=== PATIENT | female | born 1955 | race Caucasian/White ===

== ENCOUNTER 2023-11-16 10:44 | Emergency (ER) | payer MEDICARE ==
[~2023-11-16] VITALS: Ht 160 cm; Wt 86.3 kg
[2023-11-16] MEDS ORDERED: RISP1TAB42 PO (10:56)
[2023-11-16] MEDS ORDERED: PRAZ1CAP PO (10:56)
[2023-11-16] MEDS ORDERED: ROSU10TA61 PO (10:56)
[2023-11-16] MEDS ORDERED: ROPI0.5T33 PO (10:56)
[2023-11-16] MEDS ORDERED: PANT20TA6 PO (10:56)
[2023-11-16] MEDS ORDERED: TRAZ-257 PO (10:56)
[2023-11-16] MEDS ORDERED: LISI10TA22 PO (10:56)
[2023-11-16] MEDS ORDERED: VITAD400CA PO (10:56)
[2023-11-16] MEDS ORDERED: CALC500T68 PO (10:56)
[2023-11-16] MEDS ORDERED: PROZ40CA PO (10:56)
[2023-11-16] MEDS ORDERED: ASPI-655 PO (10:56)
[2023-11-16] MEDS ORDERED: KLON1TAB13 PO (10:57)
[2023-11-16] MEDS: NS 1,000 ML IV ONE (12:07)
[2023-11-16] MEDS: ONDANSETRON 4MG 2ML VIAL IV ONE (12:08)
[2023-11-16] MEDS: MORPHINE 4 MG/ML 1ML VIAL IV ONE ×2 (12:08→13:24)
[2023-11-16 12:09] LABS: BASO # 0.1 10^3/uL (0.0-0.2); BASO % 0.9 % (0.0-1.0); EOS # 0.1 10^3/uL (0.0-0.5); EOS % 0.6 % (0.0-3.0); HEMATOCRIT 44.8 % (36.0-47.0); HEMOGLOBIN 14.6 g/dl (12.0-15.5); LYMPH # 1.8 10^3/uL (1.5-5.0); LYMPH % 21.9 % (24.0-44.0); MEAN CORPUSCULAR HEMOGLOBIN 27.9 pg (27.0-33.0); MEAN CORPUSCULAR HGB CONC 32.6 g/dl (32.0-36.5); MEAN CORPUSCULAR VOLUME 85.5 fl (80.0-96.0); MONO # 0.7 10^3/uL (0.0-0.8); MONO % 8.1 % (2.0-8.0); NEUTROPHILS # 5.4 10^3/uL (1.5-8.5); NEUTROPHILS % 68.2 % (36.0-66.0); PLATELET COUNT, AUTOMATED 259 10^3/uL (150-450); RED BLOOD COUNT 5.24 10^6/uL (4.00-5.40)
[2023-11-16 12:27] LABS: LIPASE 40 U/L (12-53)
[2023-11-16 12:29] LABS: ALBUMIN 4.1 G/DL (3.2-5.2); ALKALINE PHOSPHATASE 145 U/L (46-116); ALT/SGPT 17 U/L (7.0-40); AST/SGOT 17 U/L (<34); BILIRUBIN,TOTAL 0.4 MG/DL (0.3-1.2); BLOOD UREA NITROGEN 13 MG/DL (9-23); CALCIUM LEVEL 9.7 MG/DL (8.3-10.6); CARBON DIOXIDE LEVEL 28 MMOL/L (20-31); CHLORIDE LEVEL 108 MMOL/L (98-107); GLOMERULAR FILTRATION RATE > 60.0 (>45); GLUCOSE, FASTING 87 MG/DL (74-106); POTASSIUM SERUM 4.1 MMOL/L (3.5-5.1); SODIUM LEVEL 141 MMOL/L (136-145); TOTAL PROTEIN 7.3 G/DL (5.7-8.2)
[2023-11-16] MEDS: GASTROGRAFIN SOLUTION 30ML PO SCH (12:53)
[2023-11-16] MEDS ORDERED: ISOVUE-370 76% 100ML VIAL As Ordered ONE (13:50)
[2023-11-16] MEDS ORDERED: HYDR-3713 PO (15:33)
[2023-11-16] MEDS ORDERED: COLA100C5 PO (15:33)
[2023-11-16 15:50] VITALS: BP 135/71; TEMP 97.8; O2SAT 96
== END 2023-11-16 16:02 | disposition home or self-care (01) ==
LOC: M ED 10:44
DX: K43.5 Parastomal hernia without obstruction or gangrene (principal); I10 Essential (primary) hypertension; E78.5 Hyperlipidemia, unspecified; F31.9 Bipolar disorder, unspecified; K57.90 Diverticulosis of intestine, part unspecified, without perforation or abscess without bleeding; F17.200 Nicotine dependence, unspecified, uncomplicated; Z79.82 Long term (current) use of aspirin; Z79.811 Long term (current) use of aromatase inhibitors; Z79.899 Other long term (current) drug therapy
CPT/HCPCS: 74177; 80053; 83605; 83690; 85025; 87324; 87507; 96361; 96374; 96375; 99284; J2405; Q9963; Q9967

== ENCOUNTER 2024-03-29 08:20 | Inpatient (IN) | payer MEDICARE, OTHER ==
[~2024-03-29] VITALS: Ht 162.6 cm; Wt 84.9 kg
[~2024-03-29 08:20] MED LIST: ASPI-655 PO; CALC500T68 PO; COLA100C5 PO; HYDR-3713 PO; KLON1TAB13 PO; LISI10TA22 PO; PANT20TA6 PO; PRAZ1CAP PO; PROZ40CA PO; RISP1TAB42 PO; ROPI0.5T33 PO; ROSU10TA61 PO; TRAZ-257 PO; VITAD400CA PO
[2024-03-29] MEDS ORDERED: NYST10006 (08:55)
[2024-03-29] MEDS ORDERED: GABA-284 PO (08:55)
[2024-03-29] MEDS: PANTOPRAZOLE 40MG VIAL IV ONE ×2 (09:06→13:58)
[2024-03-29] MEDS: MORPHINE 2 MG/ML 1ML VIAL IV PRN ×2 (09:07→18:24)
[2024-03-29 09:12] LABS: BASO % 0.5 % (0.0-1.0); EOS % 0.4 % (0.0-3.0); HEMOGLOBIN 9.8 g/dl (12.0-15.5); LYMPH % 13.1 % (24.0-44.0); MEAN CORPUSCULAR HEMOGLOBIN 27.8 pg (27.0-33.0); MEAN CORPUSCULAR HGB CONC 31.6 g/dl (32.0-36.5); MEAN CORPUSCULAR VOLUME 87.8 fl (80.0-96.0); MONO # 0.6 10^3/uL (0.0-0.8); MONO % 7.7 % (2.0-8.0); NEUTROPHILS # 5.9 10^3/uL (1.5-8.5); NEUTROPHILS % 77.8 % (36.0-66.0); PLATELET COUNT, AUTOMATED 250 10^3/uL (150-450); RED BLOOD COUNT 3.53 10^6/uL (4.00-5.40); WHITE BLOOD COUNT 7.6 10^3/uL (4.0-10.0)
[2024-03-29 09:18] LABS: INR 1.07; PARTIAL THROMBOPLASTIN TIME 24.6 SECONDS (24.8-34.2); PROTHROMBIN TIME 13.6 SECONDS (12.5-14.5)
[2024-03-29] MEDS: NS 1,000 ML IV ONE (09:22)
[2024-03-29 09:28] LABS: LIPASE 27 U/L (12-53)
[2024-03-29 09:31] LABS: ALBUMIN 2.8 G/DL (3.2-5.2); ALKALINE PHOSPHATASE 106 U/L (46-116); ALT/SGPT 11 U/L (7.0-40); AST/SGOT 18 U/L (<34); BILIRUBIN,DIRECT < 0.1 MG/DL (<0.4); BILIRUBIN,TOTAL < 0.2 MG/DL (0.3-1.2); BLOOD UREA NITROGEN 46 MG/DL (9-23); CARBON DIOXIDE LEVEL 23 MMOL/L (20-31); CHLORIDE LEVEL 112 MMOL/L (98-107); CREATININE FOR GFR 0.75 MG/DL (0.55-1.30); GLOMERULAR FILTRATION RATE > 60.0 (>45); GLUCOSE, FASTING 97 MG/DL (74-106); POTASSIUM SERUM 5.2 MMOL/L (3.5-5.1); SODIUM LEVEL 141 MMOL/L (136-145); TOTAL PROTEIN 5.7 G/DL (5.7-8.2)
[2024-03-29] MEDS ORDERED: ISOVUE-370 76% 100ML VIAL As Ordered ONE (10:14)
[2024-03-29] MEDS: LIDOCAINE 2% 5ML JELLY UROJET TOP ONE (10:45)
[2024-03-29 11:01] LABS: HEMATOCRIT 27.3 % (36.0-47.0); HEMOGLOBIN 8.6 g/dl (12.0-15.5); MEAN CORPUSCULAR HEMOGLOBIN 27.9 pg (27.0-33.0); MEAN CORPUSCULAR HGB CONC 31.5 g/dl (32.0-36.5); MEAN CORPUSCULAR VOLUME 88.6 fl (80.0-96.0); PLATELET COUNT, AUTOMATED 228 10^3/uL (150-450); RED BLOOD COUNT 3.08 10^6/uL (4.00-5.40)
[2024-03-29] MEDS: NS 500 ML IV ONE (11:06)
[2024-03-29] MEDS: CIPROFLOXACIN 400 MG in IV 1 EA IV ONE (11:55)
[2024-03-29] MEDS ORDERED: ATOR40TA75 PO (12:38)
[2024-03-29] MEDS ORDERED: FLUO-365 PO (12:38)
[2024-03-29] MEDS ORDERED: ROPI1TA PO (12:38)
[2024-03-29] MEDS ORDERED: RISP0.5T21 PO (12:38)
[2024-03-29] MEDS ORDERED: HOME MED LIST COMPLETE! XX SCH (12:40)
[2024-03-29] MEDS: metroNIDAZOLE 500 MG in IV 1 EA IV ONE (12:59)
[2024-03-29] MEDS: PANTOPRAZOLE SODIUM 40 MG in D5W 50 ML IV SCH (13:37)
[2024-03-29 14:09] VITALS: BP 113/62; TEMP 98; O2SAT 99
[2024-03-29 14:55] VITALS: BP 108/53; TEMP 96.7; O2SAT 98
[2024-03-29 15:21] VITALS: BP 124/56; TEMP 97.3; O2SAT 99
[2024-03-29] MEDS ORDERED: LIDOCAINE 2% 100MG/5ML SDV (FOR ANES.) As Ordered ONE (15:50)
[2024-03-29] MEDS ORDERED: propofoL 200 MG/20 ML VIAL As Ordered ONE (16:26)
[2024-03-29 17:55] LABS: HEMATOCRIT 31.2 % (36.0-47.0); HEMOGLOBIN 9.8 g/dl (12.0-15.5)
[2024-03-29 20:27] VITALS: BP 111/55; TEMP 97.1; O2SAT 98
[2024-03-29] MEDS: metroNIDAZOLE 500 MG in IV 1 EA IV SCH (21:10)
[2024-03-29] MEDS: HYDROMORPHONE HCL 0.5 MG/ 0.5 ML SYRINGE IV PRN ×2 (21:11)
[2024-03-29] MEDS: PRAZOSIN 1 MG CAP PO SCH (21:35)
[2024-03-29] MEDS: rOPINIRole 1MG TAB PO SCH (21:36)
[2024-03-29] MEDS: traZODone 100 MG TAB PO SCH (21:36)
[2024-03-29] MEDS: clonazePAM 1 MG TAB PO PRN (21:36)
[2024-03-29] MEDS: risperiDONE 0.5 MG TAB PO SCH (21:36)
[2024-03-29] MEDS: ONDANSETRON 4MG 2ML VIAL IV PRN (21:37)
[2024-03-29] MEDS: CIPROFLOXACIN 400 MG in IV 1 EA IV SCH (23:01)
[2024-03-30] VITALS (7 sets, daily range): BP systolic 90–163; BP diastolic 50–76; TEMP 97–98.9; O2SAT 91–96
[2024-03-30] MEDS: LR 1,000 ML IV ONE (00:31)
[2024-03-30 00:48] LABS: HEMATOCRIT 28.6 % (36.0-47.0); HEMOGLOBIN 9.1 g/dl (12.0-15.5)
[2024-03-30] MEDS: POLYETHYLENE GLYCOL (MIRALAX) 238GM BOTTLE PO ONE (06:23)
[2024-03-30 06:52] LABS: BASO % 0.4 % (0.0-1.0); HEMATOCRIT 28.7 % (36.0-47.0); LYMPH # 0.9 10^3/uL (1.5-5.0); LYMPH % 12.6 % (24.0-44.0); MEAN CORPUSCULAR HEMOGLOBIN 27.9 pg (27.0-33.0); MEAN CORPUSCULAR HGB CONC 31.4 g/dl (32.0-36.5); MEAN CORPUSCULAR VOLUME 88.9 fl (80.0-96.0); MONO # 0.5 10^3/uL (0.0-0.8); MONO % 6.8 % (2.0-8.0); NEUTROPHILS # 5.9 10^3/uL (1.5-8.5); NEUTROPHILS % 79.9 % (36.0-66.0); PLATELET COUNT, AUTOMATED 206 10^3/uL (150-450); RED BLOOD COUNT 3.23 10^6/uL (4.00-5.40); WHITE BLOOD COUNT 7.4 10^3/uL (4.0-10.0)
[2024-03-30 07:12] LABS: BLOOD UREA NITROGEN 19 MG/DL (9-23); CALCIUM LEVEL 8.5 MG/DL (8.3-10.6); CARBON DIOXIDE LEVEL 23 MMOL/L (20-31); CHLORIDE LEVEL 113 MMOL/L (98-107); CREATININE FOR GFR 0.71 MG/DL (0.55-1.30); GLOMERULAR FILTRATION RATE > 60.0 (>45); GLUCOSE, FASTING 133 MG/DL (74-106); POTASSIUM SERUM 4.1 MMOL/L (3.5-5.1); SODIUM LEVEL 140 MMOL/L (136-145)
[2024-03-30] MEDS: METOCLOPRAMIDE INJ 10MG/2ML VIAL IV ONE (08:03)
[2024-03-30] MEDS: METOCLOPRAMIDE INJ 10MG/2ML VIAL IV PRN (15:46)
[2024-03-30] MEDS ORDERED: ONDANSETRON 4MG 2ML VIAL As Ordered ONE (18:19)
[2024-03-30] MEDS ORDERED: METOCLOPRAMIDE INJ 10MG/2ML VIAL As Ordered ONE (18:19)
[2024-03-30] MEDS ORDERED: MIDAZOLAM INJ 2MG/2ML VIAL As Ordered ONE (18:19)
[2024-03-30] MEDS ORDERED: fentaNYL 100 MCG/2 ML INJECTION As Ordered ONE (18:19)
[2024-03-31 03:15] VITALS: BP 140/65; TEMP 97.6; O2SAT 95
[2024-03-31 05:59] LABS: HEMATOCRIT 28.5 % (36.0-47.0); HEMOGLOBIN 9.1 g/dl (12.0-15.5); LYMPH # 0.9 10^3/uL (1.5-5.0); LYMPH % 17.6 % (24.0-44.0); MEAN CORPUSCULAR HEMOGLOBIN 27.2 pg (27.0-33.0); MEAN CORPUSCULAR HGB CONC 31.9 g/dl (32.0-36.5); MEAN CORPUSCULAR VOLUME 85.3 fl (80.0-96.0); MONO # 0.4 10^3/uL (0.0-0.8); MONO % 7.7 % (2.0-8.0); NEUTROPHILS # 3.9 10^3/uL (1.5-8.5); NEUTROPHILS % 74.1 % (36.0-66.0); PLATELET COUNT, AUTOMATED 230 10^3/uL (150-450); RED BLOOD COUNT 3.34 10^6/uL (4.00-5.40); WHITE BLOOD COUNT 5.2 10^3/uL (4.0-10.0)
[2024-03-31 06:24] LABS: BLOOD UREA NITROGEN 9 MG/DL (9-23); CALCIUM LEVEL 9.2 MG/DL (8.3-10.6); CARBON DIOXIDE LEVEL 28 MMOL/L (20-31); CHLORIDE LEVEL 109 MMOL/L (98-107); CREATININE FOR GFR 0.68 MG/DL (0.55-1.30); GLOMERULAR FILTRATION RATE > 60.0 (>45); GLUCOSE, FASTING 127 MG/DL (74-106); POTASSIUM SERUM 3.7 MMOL/L (3.5-5.1); SODIUM LEVEL 141 MMOL/L (136-145)
[2024-03-31 08:10] VITALS: BP 144/68; TEMP 99; O2SAT 95
[2024-03-31] MEDS: PANTOPRAZOLE 40MG TAB (PROTONIX) PO SCH (08:40)
[2024-03-31] MEDS: FLUBLOK(EGGFREE) TRIVAL(24-25) VACCINE PF 0.5ML SYRINGE 18YRS & OLDER IM.IMMUN ONE (08:44)
[2024-03-31 11:20] VITALS: BP 148/69; TEMP 97.7; O2SAT 96
[2024-03-31 15:35] VITALS: BP 158/52; TEMP 97.2; O2SAT 96
[2024-03-31] MEDS: GABAPENTIN 400MG CAP PO SCH (20:44)
[2024-03-31 21:08] VITALS: BP 144/74; TEMP 98.4; O2SAT 93
[2024-04-01] VITALS (7 sets, daily range): BP systolic 102–145; BP diastolic 53–71; TEMP 97.3–98.6; O2SAT 94–97
[2024-04-01 06:05] LABS: BASO % 0.3 % (0.0-1.0); EOS % 0.1 % (0.0-3.0); HEMATOCRIT 27.9 % (36.0-47.0); LYMPH # 1.8 10^3/uL (1.5-5.0); LYMPH % 26.2 % (24.0-44.0); MEAN CORPUSCULAR HEMOGLOBIN 27.4 pg (27.0-33.0); MEAN CORPUSCULAR HGB CONC 32.3 g/dl (32.0-36.5); MEAN CORPUSCULAR VOLUME 85.1 fl (80.0-96.0); MONO # 0.7 10^3/uL (0.0-0.8); MONO % 10.9 % (2.0-8.0); NEUTROPHILS # 4.2 10^3/uL (1.5-8.5); NEUTROPHILS % 62.2 % (36.0-66.0); PLATELET COUNT, AUTOMATED 229 10^3/uL (150-450); RED BLOOD COUNT 3.28 10^6/uL (4.00-5.40); WHITE BLOOD COUNT 6.8 10^3/uL (4.0-10.0)
[2024-04-01 06:32] LABS: BLOOD UREA NITROGEN 13 MG/DL (9-23); CALCIUM LEVEL 9.1 MG/DL (8.3-10.6); CARBON DIOXIDE LEVEL 31 MMOL/L (20-31); CHLORIDE LEVEL 105 MMOL/L (98-107); CREATININE FOR GFR 0.74 MG/DL (0.55-1.30); GLOMERULAR FILTRATION RATE > 60.0 (>45); GLUCOSE, FASTING 101 MG/DL (74-106); POTASSIUM SERUM 3.2 MMOL/L (3.5-5.1); SODIUM LEVEL 141 MMOL/L (136-145)
[2024-04-01] MEDS: LACTOBACILLUS ACIDOPHILUS CAP (BACID) PO SCH (10:02)
[2024-04-01] MEDS: POTASSIUM CHLORIDE 10MEQ SR TABLET PO ONE (10:03)
[2024-04-01] MEDS: FLUoxetine 20MG CAP PO SCH (10:04)
[2024-04-01] MEDS: ATORVASTATIN 20 MG TAB PO SCH (12:16)
[2024-04-01] MEDS: traMADol 50 MG TAB PO PRN (18:54)
[2024-04-02 04:00] VITALS: BP 124/58; TEMP 98.4; O2SAT 99
[2024-04-02 06:58] LABS: BASO # 0.1 10^3/uL (0.0-0.2); BASO % 0.8 % (0.0-1.0); EOS # 0.1 10^3/uL (0.0-0.5); EOS % 1.8 % (0.0-3.0); HEMATOCRIT 28.3 % (36.0-47.0); HEMOGLOBIN 8.9 g/dl (12.0-15.5); LYMPH # 1.4 10^3/uL (1.5-5.0); LYMPH % 22.9 % (24.0-44.0); MEAN CORPUSCULAR HEMOGLOBIN 27.3 pg (27.0-33.0); MEAN CORPUSCULAR HGB CONC 31.4 g/dl (32.0-36.5); MEAN CORPUSCULAR VOLUME 86.8 fl (80.0-96.0); MONO # 0.7 10^3/uL (0.0-0.8); MONO % 11.3 % (2.0-8.0); NEUTROPHILS # 3.9 10^3/uL (1.5-8.5); NEUTROPHILS % 62.9 % (36.0-66.0); PLATELET COUNT, AUTOMATED 242 10^3/uL (150-450); RED BLOOD COUNT 3.26 10^6/uL (4.00-5.40); WHITE BLOOD COUNT 6.1 10^3/uL (4.0-10.0)
[2024-04-02 07:21] LABS: BLOOD UREA NITROGEN 16 MG/DL (9-23); CALCIUM LEVEL 9.1 MG/DL (8.3-10.6); CARBON DIOXIDE LEVEL 32 MMOL/L (20-31); CHLORIDE LEVEL 107 MMOL/L (98-107); CREATININE FOR GFR 0.79 MG/DL (0.55-1.30); GLOMERULAR FILTRATION RATE > 60.0 (>45); GLUCOSE, FASTING 98 MG/DL (74-106); POTASSIUM SERUM 3.2 MMOL/L (3.5-5.1); SODIUM LEVEL 142 MMOL/L (136-145)
[2024-04-02 07:28] VITALS: BP 149/66; TEMP 97.3; O2SAT 96
[2024-04-02 09:55] VITALS: BP 123/82
[2024-04-02] MEDS: ASPIRIN 81MG CHEW TABLET PO SCH (09:56)
[2024-04-02] MEDS: POTASSIUM CHLORIDE 10MEQ SR TABLET PO SCH (09:58)
[2024-04-02 09:59] VITALS: BP 123/82
[2024-04-02 11:33] VITALS: BP 140/72; TEMP 98.7; O2SAT 97
[2024-04-02] MEDS ORDERED: CIPR250T3 PO (13:34)
[2024-04-02] MEDS ORDERED: PANT40TA29 PO (13:34)
[2024-04-02] MEDS ORDERED: PROB250C PO (13:34)
[2024-04-02] MEDS ORDERED: METR-265 PO (13:34)
[2024-04-02] MEDS ORDERED: APAP325T4 PO (13:34)
[2024-04-02] MEDS ORDERED: RISATAB3 PO (13:34)
[2024-04-02] MEDS ORDERED: POTA-136 PO (13:34)
[2024-04-02] MEDS ORDERED: OXYC1TAB23 PO (13:34)
== END 2024-04-02 16:07 | disposition home or self-care (01) | DRG 377 ==
LOC: EDBD 08:20 → M ED 08:20 → M ED INP 12:58 → M PCU 14:02
PROVIDERS: ADMIT Internal Medicine Nephrology; ATTEND Internal Medicine
PROC: 0DJD8ZZ Inspection of Lower Intestinal Tract, Via Natural or Artificial Opening Endoscopic (ICD-10-PCS; 2024-03-29)
PROC: 30233N1 Transfusion of Nonautologous Red Blood Cells into Peripheral Vein, Percutaneous Approach (ICD-10-PCS; 2024-03-29)
PROC: 0W3P8ZZ Control Bleeding in Gastrointestinal Tract, Via Natural or Artificial Opening Endoscopic (ICD-10-PCS; 2024-03-29)
PROC: 0DB68ZX Excision of Stomach, Via Natural or Artificial Opening Endoscopic, Diagnostic (ICD-10-PCS; principal; 2024-03-29 13:59)
PROC: 0DJD8ZZ Inspection of Lower Intestinal Tract, Via Natural or Artificial Opening Endoscopic (ICD-10-PCS; 2024-03-30)
PROC: 0DJ08ZZ Inspection of Upper Intestinal Tract, Via Natural or Artificial Opening Endoscopic (ICD-10-PCS; 2024-03-30)
DX: K25.4 Chronic or unspecified gastric ulcer with hemorrhage (principal); R57.1 Hypovolemic shock; K57.92 Diverticulitis of intestine, part unspecified, without perforation or abscess without bleeding; D62 Acute posthemorrhagic anemia; F31.9 Bipolar disorder, unspecified; K29.80 Duodenitis without bleeding; F03.90 Unspecified dementia, unspecified severity, without behavioral disturbance, psychotic disturbance, mood disturbance, and anxiety; E78.00 Pure hypercholesterolemia, unspecified; K29.70 Gastritis, unspecified, without bleeding; Z93.3 Colostomy status; J44.9 Chronic obstructive pulmonary disease, unspecified; I34.0 Nonrheumatic mitral (valve) insufficiency; I10 Essential (primary) hypertension; F41.9 Anxiety disorder, unspecified; I48.91 Unspecified atrial fibrillation; Z79.899 Other long term (current) drug therapy; Z79.82 Long term (current) use of aspirin; F42.9 Obsessive-compulsive disorder, unspecified

== ENCOUNTER 2024-04-22 07:01 | Emergency (ER) | payer MEDICARE, OTHER ==
[~2024-04-22] VITALS: Ht 162.6 cm; Wt 78.8 kg
[~2024-04-22 07:01] MED LIST changes: +APAP325T4 PO; +ATOR40TA75 PO; +CIPR250T3 PO; +FLUO-365 PO; +GABA-284 PO; +METR-265 PO; +NYST10006; +OXYC1TAB23 PO; +PANT40TA29 PO; +POTA-136 PO; +PROB250C PO; +RISATAB3 PO; +RISP0.5T21 PO; +ROPI1TA PO
[2024-04-22] MEDS: LORazepam 2 MG/ML 1ML VIAL IV STA ×2 (11:58→14:06)
[2024-04-22 12:18] LABS: BASO % 0.6 % (0.0-1.0); EOS % 0.1 % (0.0-3.0); HEMATOCRIT 37.9 % (36.0-47.0); LYMPH # 0.9 10^3/uL (1.5-5.0); LYMPH % 13.1 % (24.0-44.0); MEAN CORPUSCULAR HGB CONC 31.7 g/dl (32.0-36.5); MEAN CORPUSCULAR VOLUME 85.4 fl (80.0-96.0); MONO # 0.6 10^3/uL (0.0-0.8); MONO % 7.9 % (2.0-8.0); NEUTROPHILS # 5.6 10^3/uL (1.5-8.5); PLATELET COUNT, AUTOMATED 340 10^3/uL (150-450); RED BLOOD COUNT 4.44 10^6/uL (4.00-5.40); WHITE BLOOD COUNT 7.2 10^3/uL (4.0-10.0)
[2024-04-22] MEDS ORDERED: ISOVUE-370 76% 100ML VIAL As Ordered ONE (12:48)
[2024-04-22 12:51] LABS: ETHYL ALCOHOL (ETHANOL) 0.004 % (0.000-0.010); LIPASE 34 U/L (12-53)
[2024-04-22 12:53] LABS: ALBUMIN 4.1 G/DL (3.2-5.2); ALKALINE PHOSPHATASE 136 U/L (46-116); ALT/SGPT 14 U/L (7.0-40); AST/SGOT 10 U/L (<34); BILIRUBIN,DIRECT 0.1 MG/DL (<0.4); BILIRUBIN,TOTAL 0.3 MG/DL (0.3-1.2); SALICYLATE LEVEL < 3.0 MG/DL (<30); TOTAL PROTEIN 7.9 G/DL (5.7-8.2)
[2024-04-22 12:55] LABS: THYROID STIMULATING HORMONE 0.366 uIU/ML (0.55-4.78)
[2024-04-22 13:01] LABS: AMPHETAMINES LEVEL URINE NEGATIVE (NEGATIVE); BARBITURATES URINE NEGATIVE (NEGATIVE); BENZODIAZEPINES URINE NEGATIVE (NEGATIVE); CANNABINOIDS URINE NEGATIVE (NEGATIVE); COCAINE METABOLITE URINE NEGATIVE (NEGATIVE); METHADONE URINE NEGATIVE (NEGATIVE); OPIATES URINE NEGATIVE (NEGATIVE); PHENCYCLIDINE URINE NEGATIVE (NEGATIVE)
[2024-04-22] MEDS ORDERED: D 101000 PO (13:09)
[2024-04-22] MEDS ORDERED: OMEP-173 PO (13:09)
[2024-04-22] MEDS ORDERED: B-COTAB10 PO (13:09)
[2024-04-22] MEDS ORDERED: ACE65ERTAB PO (13:09)
[2024-04-22] MEDS ORDERED: ASPI325T57 PO (13:09)
[2024-04-22] MEDS ORDERED: AMLO1TAB25 PO (13:09)
[2024-04-22] MEDS ORDERED: PERCOCET PO (13:21)
[2024-04-22] MEDS ORDERED: RISATAB3 PO (13:21)
[2024-04-22] MEDS ORDERED: HOME MED LIST COMPLETE! XX SCH (13:25)
[2024-04-22 13:52] LABS: FREE T4 1.53 NG/DL (0.89-1.76)
[2024-04-22] MEDS: ONDANSETRON 4MG 2ML VIAL IV ONE (15:08)
[2024-04-22] MEDS ORDERED: ONDA-282 PO (15:35)
[2024-04-22] MEDS ORDERED: KLON1TAB13 PO (15:35)
[2024-04-22 15:55] VITALS: BP 145/86; TEMP 99; O2SAT 94
== END 2024-04-22 16:00 | disposition home or self-care (01) ==
LOC: M ED 07:01
DX: F41.9 Anxiety disorder, unspecified (principal); R10.9 Unspecified abdominal pain; J98.11 Atelectasis; K57.90 Diverticulosis of intestine, part unspecified, without perforation or abscess without bleeding; I10 Essential (primary) hypertension; F03.90 Unspecified dementia, unspecified severity, without behavioral disturbance, psychotic disturbance, mood disturbance, and anxiety; F32.A Depression, unspecified; F31.9 Bipolar disorder, unspecified; Z79.811 Long term (current) use of aromatase inhibitors; Z79.83 Long term (current) use of bisphosphonates; Z79.82 Long term (current) use of aspirin; Z79.899 Other long term (current) drug therapy
CPT/HCPCS: 74177; 80047; 80076; 80143; 80307; 81001; 82077; 83605; 83690; 84439; 84443; 85025; 93005; 96374; 96375; 96376; 99284; J2060; J2405; Q9967

== ENCOUNTER → 2024-06-23 | Outpatient (CLI) | payer OTHER ==
[~2024-06-23] MED LIST changes: +ACE65ERTAB PO; +AMLO1TAB25 PO; +ASPI325T57 PO; +B-COTAB10 PO; +D 101000 PO; +OMEP-173 PO; +ONDA-282 PO; +PERCOCET PO
== END ==
LOC: M PLARAD 09:50
PROVIDERS: ATTEND Student in an Organized Health Care Education/Training Program
DX: I88.0 Nonspecific mesenteric lymphadenitis (principal)
CPT/HCPCS: 78815; A9552

== ENCOUNTER 2024-07-01 13:23 | Inpatient (IN) | payer MEDICARE, OTHER ==
[~2024-07-01] VITALS: Ht 162.6 cm; Wt 79.8 kg
[2024-07-01 13:57] LABS: BASO % 0.8 % (0.0-1.0); EOS # 0.1 10^3/uL (0.0-0.5); EOS % 1.3 % (0.0-3.0); LYMPH # 1.4 10^3/uL (1.5-5.0); MEAN CORPUSCULAR HEMOGLOBIN 24.3 pg (27.0-33.0); MEAN CORPUSCULAR HGB CONC 30.3 g/dl (32.0-36.5); MEAN CORPUSCULAR VOLUME 80.3 fl (80.0-96.0); MONO # 0.7 10^3/uL (0.0-0.8); MONO % 12.4 % (2.0-8.0); NEUTROPHILS # 3.1 10^3/uL (1.5-8.5); NEUTROPHILS % 59.3 % (36.0-66.0); PLATELET COUNT, AUTOMATED 286 10^3/uL (150-450); RED BLOOD COUNT 4.11 10^6/uL (4.00-5.40); WHITE BLOOD COUNT 5.3 10^3/uL (4.0-10.0)
[2024-07-01] MEDS: PANTOPRAZOLE 40MG VIAL IV ONE ×2 (14:16→17:11)
[2024-07-01] MEDS: MORPHINE 4 MG/ML 1ML VIAL IV ONE ×2 (14:18→16:26)
[2024-07-01 14:22] LABS: LIPASE 42 U/L (12-53)
[2024-07-01 14:24] LABS: ALBUMIN 3.7 G/DL (3.2-5.2); ALKALINE PHOSPHATASE 123 U/L (35-104); ALT/SGPT < 9 U/L (7.0-40); AST/SGOT < 8 U/L (<34); BILIRUBIN,DIRECT < 0.1 MG/DL (<0.4); BILIRUBIN,TOTAL 0.2 MG/DL (0.3-1.2); BLOOD UREA NITROGEN 27 MG/DL (9-23); CALCIUM LEVEL 9.4 MG/DL (8.3-10.6); CARBON DIOXIDE LEVEL 26 MMOL/L (20-31); CHLORIDE LEVEL 108 MMOL/L (98-107); CREATININE FOR GFR 0.91 MG/DL (0.55-1.30); GLOMERULAR FILTRATION RATE > 60.0 (>45); GLUCOSE, FASTING 75 MG/DL (74-106); POTASSIUM SERUM 4.3 MMOL/L (3.5-5.1); SODIUM LEVEL 140 MMOL/L (136-145); TOTAL PROTEIN 7.2 G/DL (5.7-8.2)
[2024-07-01 14:25] LABS: INR 0.95; PARTIAL THROMBOPLASTIN TIME 27.2 SECONDS (24.8-34.2)
[2024-07-01] MEDS ORDERED: ISOVUE-370 76% 100ML VIAL As Ordered ONE (14:38)
[2024-07-01] MEDS ORDERED: FLUO40CA PO (16:58)
[2024-07-01] MEDS ORDERED: PANT-23 PO (16:58)
[2024-07-01] MEDS ORDERED: HOME MED LIST COMPLETE! XX SCH (17:05)
[2024-07-01 17:44] LABS: IRON (FE) 40 UG/DL (50-170); PERCENT SATURATION 9.2 % (13.2-45.0); TOTAL IRON BINDING CAPACITY 433 UG/DL (250-425)
[2024-07-01 17:46] LABS: FERRITIN 6.2 NG/ML (7.3-270.7); FOLATE 13.8 NG/ML (>5.4); VITAMIN B12 LEVEL 446 PG/ML (211-911)
[2024-07-01] MEDS: SUCRALFATE SUSP 1GM/10ML UD PO SCH (18:08)
[2024-07-01] MEDS ORDERED: ONDANSETRON 4MG ORAL DISINTEGRATING TAB PO PRN (18:40)
[2024-07-01 20:34] VITALS: BP 139/64; TEMP 97; O2SAT 95
[2024-07-01] MEDS: ATORVASTATIN 20 MG TAB PO SCH (21:01)
[2024-07-01] MEDS: traZODone 100 MG TAB PO SCH (21:03)
[2024-07-01] MEDS: risperiDONE 0.5 MG TAB PO SCH (21:04)
[2024-07-01] MEDS: rOPINIRole 1MG TAB PO SCH (21:04)
[2024-07-01] MEDS: GABAPENTIN 400MG CAP PO SCH (21:04)
[2024-07-01] MEDS: PRAZOSIN 1 MG CAP PO SCH (21:04)
[2024-07-01] MEDS: clonazePAM 1 MG TAB PO PRN (21:07)
[2024-07-01] MEDS ORDERED: MAALOX 30 ML SUSP *UDC PO PRN (21:15)
[2024-07-01] MEDS ORDERED: PILL CUTTER 1 EACH XX ONE (21:32)
[2024-07-01] MEDS: HYDROmorphone 2 MG TAB PO ONE (21:38)
[2024-07-01] MEDS: FAMOTIDINE IV BAG 20 MG in IV 1 EA IV ONE (21:39)
[2024-07-01 22:03] LABS: HEMATOCRIT 31.6 % (36.0-47.0); HEMOGLOBIN 9.6 g/dl (12.0-15.5); MEAN CORPUSCULAR HEMOGLOBIN 24.6 pg (27.0-33.0); MEAN CORPUSCULAR HGB CONC 30.4 g/dl (32.0-36.5); PLATELET COUNT, AUTOMATED 275 10^3/uL (150-450); WHITE BLOOD COUNT 7.4 10^3/uL (4.0-10.0)
[2024-07-01 23:24] VITALS: BP 141/67; TEMP 96.9; O2SAT 99
[2024-07-02 03:36] VITALS: BP 107/53; TEMP 96.9; O2SAT 96
[2024-07-02] MEDS: ACETAMINOPHEN 650MG ER TAB (TYLENOL ARTHRITIS) PO PRN (04:02)
[2024-07-02 05:54] LABS: HEMATOCRIT 30.5 % (36.0-47.0); HEMOGLOBIN 9.2 g/dl (12.0-15.5); MEAN CORPUSCULAR HEMOGLOBIN 24.7 pg (27.0-33.0); MEAN CORPUSCULAR HGB CONC 30.2 g/dl (32.0-36.5); PLATELET COUNT, AUTOMATED 246 10^3/uL (150-450); RED BLOOD COUNT 3.72 10^6/uL (4.00-5.40); WHITE BLOOD COUNT 5.2 10^3/uL (4.0-10.0)
[2024-07-02 06:22] LABS: BLOOD UREA NITROGEN 17 MG/DL (9-23); CALCIUM LEVEL 9.2 MG/DL (8.3-10.6); CARBON DIOXIDE LEVEL 25 MMOL/L (20-31); CHLORIDE LEVEL 109 MMOL/L (98-107); CREATININE FOR GFR 0.82 MG/DL (0.55-1.30); GLOMERULAR FILTRATION RATE > 60.0 (>45); GLUCOSE, FASTING 105 MG/DL (74-106); POTASSIUM SERUM 4.2 MMOL/L (3.5-5.1); SODIUM LEVEL 141 MMOL/L (136-145)
[2024-07-02 07:00] VITALS: BP 107/53; TEMP 96.9; O2SAT 96
[2024-07-02 07:45] VITALS: BP 105/52; TEMP 97.5; O2SAT 95
[2024-07-02] MEDS: FLUoxetine 20MG CAP PO SCH (08:26)
[2024-07-02] MEDS: PANTOPRAZOLE 40MG VIAL IV SCH (08:26)
[2024-07-02] MEDS ORDERED: HYDROMORPHONE HCL 0.5 MG/ 0.5 ML SYRINGE IV PRN (10:30)
[2024-07-02 11:43] VITALS: BP 133/61; TEMP 97.6; O2SAT 99
[2024-07-02] MEDS: FERRIC CARBOXYMALTOSE INJ 750 MG, VIAL MATE ADAPTER 1 EACH in NS 100 ML IV ONE (12:05)
[2024-07-02 15:24] VITALS: BP 149/67; TEMP 97; O2SAT 95
[2024-07-02 19:12] VITALS: BP 131/70; TEMP 97.4; O2SAT 96
[2024-07-03 04:58] VITALS: BP 127/58; TEMP 97; O2SAT 94
[2024-07-03 07:06] LABS: BASO % 0.9 % (0.0-1.0); EOS # 0.1 10^3/uL (0.0-0.5); EOS % 2.7 % (0.0-3.0); HEMATOCRIT 29.8 % (36.0-47.0); HEMOGLOBIN 9.2 g/dl (12.0-15.5); LYMPH # 1.2 10^3/uL (1.5-5.0); LYMPH % 26.7 % (24.0-44.0); MEAN CORPUSCULAR HEMOGLOBIN 25.3 pg (27.0-33.0); MEAN CORPUSCULAR HGB CONC 30.9 g/dl (32.0-36.5); MEAN CORPUSCULAR VOLUME 82.1 fl (80.0-96.0); MONO # 0.5 10^3/uL (0.0-0.8); MONO % 11.4 % (2.0-8.0); NEUTROPHILS # 2.6 10^3/uL (1.5-8.5); NEUTROPHILS % 58.1 % (36.0-66.0); PLATELET COUNT, AUTOMATED 246 10^3/uL (150-450); RED BLOOD COUNT 3.63 10^6/uL (4.00-5.40); WHITE BLOOD COUNT 4.5 10^3/uL (4.0-10.0)
[2024-07-03 07:22] LABS: BLOOD UREA NITROGEN 15 MG/DL (9-23); CALCIUM LEVEL 9.4 MG/DL (8.3-10.6); CARBON DIOXIDE LEVEL 27 MMOL/L (20-31); CHLORIDE LEVEL 109 MMOL/L (98-107); CREATININE FOR GFR 0.73 MG/DL (0.55-1.30); GLOMERULAR FILTRATION RATE > 60.0 (>45); GLUCOSE, FASTING 94 MG/DL (74-106); POTASSIUM SERUM 4.2 MMOL/L (3.5-5.1); SODIUM LEVEL 143 MMOL/L (136-145)
[2024-07-03 07:27] VITALS: BP 136/61; TEMP 97.4; O2SAT 94
[2024-07-03 11:58] VITALS: BP 97/56; TEMP 97.2; O2SAT 98
[2024-07-03 17:43] VITALS: BP 117/63; TEMP 97.9; O2SAT 96
[2024-07-03 17:51] VITALS: BP 134/82; TEMP 97.5; O2SAT 93
[2024-07-03] MEDS: PANTOPRAZOLE 40MG TAB (PROTONIX) PO SCH (21:54)
[2024-07-04 03:34] VITALS: BP 144/77; TEMP 97.2; O2SAT 97
[2024-07-04 09:01] VITALS: BP 131/78
[2024-07-04] MEDS ORDERED: PANT-23 PO (12:26)
[2024-07-04] MEDS ORDERED: SUCR1TA PO (12:26)
== END 2024-07-04 13:25 | disposition home or self-care (01) | DRG 378 ==
LOC: EDSEX 13:23 → M ED 13:23 → EDBD 13:23 → M ED INP 16:51 → M PCU 20:24 → M MSPAV 07-03 17:52
PROVIDERS: ADMIT Internal Medicine; ATTEND Internal Medicine
DX: K29.71 Gastritis, unspecified, with bleeding (principal); D62 Acute posthemorrhagic anemia; I10 Essential (primary) hypertension; J44.9 Chronic obstructive pulmonary disease, unspecified; F39 Unspecified mood [affective] disorder; E78.5 Hyperlipidemia, unspecified; I48.91 Unspecified atrial fibrillation; Z79.899 Other long term (current) drug therapy; G25.81 Restless legs syndrome; Z93.3 Colostomy status